=== PATIENT | female | born 2000 | race Caucasian/White ===

== ENCOUNTER 2024-02-03 08:32 | Day surgery (SDC) | payer OTHER ==
[2024-02-03] VITALS (16 sets, daily range): BP systolic 103–135; BP diastolic 68–105
[~2024-02-03] VITALS: Ht 175.3 cm; Wt 67.7 kg
[~2024-02-03 08:32] MED LIST: AMPDEX15CR PO; DULO60 PO; Inderal 20 mg T20 MG PO; Lactated Ringer's 1,000 ML IV SCH; propofoL 40 ML IV ONE
[2024-02-03] MEDS ORDERED: BUPR150ER PO (08:49)
--- NOTE | 2024-02-03 08:59 | NUR ---
Ambulatory in Day Surgery. History, Chart, Medications and Allergies reviewed before start of procedure. Lungs clear T/O to Auscultation. Patient confirms NPO status and agrees with scheduled surgery. Pre-Op teaching done. Pt verbalizes understanding. Patient States Post-Procedure ride home has been arranged.
[2024-02-03] MEDS ORDERED: Midazolam HCl 1MG / ML 2ML Vial ONE (09:26)
--- NOTE | 2024-02-03 09:29 | NUR ---
02/03/24 0929 Caity Monroy CONFIRMED AND REVIEWED H&P, MEDCICATIONS, ALLERGIES, MEDICAL HISTORY, RESPIRATORY HISTORY, VITAL SIGNS, 3-LEAD EKG, CONSENTS, AND PHYSICIAN ORDERS. PATIENT CONFIRMS NPO STATUS AND AGREES WITH SCHEDULED PROCEDURE. MONITOR INTACT WITH CONTINUOUS PULSE OXIMETRY, CAPNOGRAPHY, 3-LEAD EKG, INTERMITTENT BP. SUPPLEMENTAL O2 TO BE TITRATED THROUGHOUT PROCEDURE TO MAINTAIN O2 SATURATION ABOVE 90%. PATIENT DETERMINED TO BE ASA APPROPRIATE FOR PROPOFOL SEDATION PRIOR TO START OF PROCEDURE BY DR. AMATO
--- NOTE | 2024-02-03 10:25 | NUR ---
Patient up to Ambulate independently. Gait steady. Discharge instructions reviewed with patient. Patient verbalizes understanding. Copy given to patient to take home. Patient States Post-Procedure ride home has been arranged. Discharged via wheelchair to private car for ride home. PT TOLERATING PO. DENIES PAIN. REPORTS READY TO GO HOME.
== END 2024-02-03 10:25 | disposition home or self-care (01) ==
LOC: ORSCMMR 08:32 → ORD 09:30 → ORSCMMR 10:25
PROVIDERS: Internal Medicine Gastroenterology
PROC: 0DBN8ZX Excision of Sigmoid Colon, Via Natural or Artificial Opening Endoscopic, Diagnostic (ICD-10-PCS; principal; 2024-02-03 09:30)
DX: K62.5 Hemorrhage of anus and rectum (principal); K59.00 Constipation, unspecified; D12.5 Benign neoplasm of sigmoid colon; F90.9 Attention-deficit hyperactivity disorder, unspecified type; F17.210 Nicotine dependence, cigarettes, uncomplicated; Z79.899 Other long term (current) drug therapy
CPT/HCPCS: 88305; J2250; J2704; J7120

== ENCOUNTER → 2024-02-25 | Outpatient (CLI) | payer OTHER ==
[~2024-02-25] MED LIST changes: +BUPR150ER PO; -Lactated Ringer's 1,000 ML IV SCH; -propofoL 40 ML IV ONE
[2024-02-25 16:25] LABS: Bacteria Mod /hpf; Mucus Light (0-Heavy); Red Blood Cells, Urine 0-2 /hpf (0-2); Squamous Epithelial Cells Few /hpf (Few); White Blood Cells, Urine 0-2 /hpf (0-5)
== END | disposition home or self-care (01) ==
LOC: LAB SHORT 14:09 → LAB 14:09
PROVIDERS: Family Medicine
DX: R32 Unspecified urinary incontinence (principal)
CPT/HCPCS: 81015; 87086